=== PATIENT | male | born 1995 | race Caucasian/White ===

== ENCOUNTER 2016-09-24 18:03 | Emergency (ER) | payer OTHER ==
[~2016-09-24] VITALS: Ht 167.6 cm; Wt 60.1 kg
[2016-09-24 18:11] VITALS: TEMP 37.2; Ht 167.6 cm; Wt 60.1 kg
[2016-09-24] MEDS ORDERED: SODIUM CHLORIDE 0.9% 1000ML 1,000 ML IV STA (18:23)
[2016-09-24 18:51] LABS: BASO % 0.2 %; BASO ABS # 0.02 K/uL (0-0.2); COMPLETE YES; EOS % 1.4 %; HEMATOCRIT 47.3 % (42-52); IG% 0.2 %; LYMPH % 19.3 %; LYMPH ABS # 1.55 K/uL (1.2-3.4); MEAN CELL VOLUME 84.6 fL (80-100); MEAN CORPUSCULAR HEMOGLOBIN 30.9 pg (25-34); MEAN CORPUSCULAR HGB CONC 36.6 g/dl (32-36); MEAN PLATELET VOLUME 10.2 fL (7.4-10.4); MONO % 7.3 %; NEUT % 71.6 %; PLATELET COUNT 242 K/uL (130-400); RED BLOOD COUNT 5.59 M/uL (4.7-6.1); WHITE BLOOD COUNT 8.04 K/uL (4.8-10.8)
[2016-09-24 18:57] LABS: URINE APPEARANCE CLEAR (CLEAR); URINE BILIRUBIN NEG (NEG); URINE COLOR YELLOW; URINE NITRITE NEG (NEG); URINE SPECIFIC GRAVITY 1.014 (1.000-1.030); UROBILINOGEN NEG (NEG); ZZUR CULT IF INDIC CLEAN CATCH NO
[2016-09-24 19:00] LABS: MANUAL MICROSCOPIC REQUIRED? NO; REVIEW REQ? NO
[2016-09-24 19:21] LABS: ALT/SGPT 34 U/L (12-78); AST/SGOT 14 U/L (15-37); BLOOD UREA NITROGEN 12 mg/dl (7-18); CALCIUM 9.2 mg/dl (8.5-10.1); CARBON DIOXIDE 32 mmol/L (21-32); CHLORIDE 104 mmol/L (98-107); GLUCOSE 87 mg/dl (70-99); POTASSIUM 3.8 mmol/L (3.5-5.1); SODIUM 141 mmol/L (136-145)
[2016-09-24 19:23] LABS: ALKALINE PHOSPHATASE 86 U/L (45-117); C-REACTIVE PROTEIN < 0.29 mg/dl (0-0.29)
--- NOTE | 2016-09-24 19:41 | DIAGNOSTIC IMAGING REPORT ---
L-SPINE MIN 4 VIEWS ROUTINE CLINICAL HISTORY: Low back pain. COMPARISON STUDY: No previous studies for comparison. FINDINGS: There are 5 lumbar type vertebral bodies present. No fractures or subluxations are visualized. No destructive lesions are evident. There is no pathologic bowel dilatation. IMPRESSION: Unremarkable conventional radiographic evaluation of the lumbar spine Electronically signed by: Shakir Kellogg M.D. 09/24/2016 7:39 PM Dictated Date/Time: 09/24/2016 7:38 PM
--- NOTE | 2016-09-24 20:10 | DIAGNOSTIC IMAGING REPORT ---
(TESTICULAR) SCROTUM-CONT CLINICAL HISTORY: Bilateral testicular pain right greater than left COMPARISON STUDY: No previous studies for comparison. FINDINGS: The right testis measures 34 x 49 x 26 mm. The left testis measures 29 x 41 x 25 mm. There is no evidence of testicular torsion area no intratesticular masses are visualized. There are no findings to indicate acute epididymitis. The left epididymis was difficult to visualize.. IMPRESSION: 1. No evidence of intratesticular mass 2. No evidence of testicular torsion Electronically signed by: Shakir Kellogg M.D. 09/24/2016 8:09 PM Dictated Date/Time: 09/24/2016 8:07 PM
[2016-09-24 20:56] VITALS: BP 131/86; PULSE 86; O2SAT 98
--- NOTE | 2016-09-25 02:20 | EMERGENCY ROOM VISIT NOTE ---
History Report prepared by Magdalena: Jean-Claude Hart Under the Supervision of: Dr. Clay Roberts M.D. First contact with patient: 18:16 Chief Complaint: BACK PAIN Stated Complaint: PAIN IN BOTH LOWER BACK AND TESTICLES History of Present Illness The patient is a 20 year old male who presents to the Emergency Room with complaints of back pain, lower right. The patient also notes the following associated symptoms, bilateral testicular pain, which is now just right sided. This started 5 days ago in the testicles, yesterday for the back and is getting worse in the back. The patient has not found any relieving factors. The testicular pain is better, but the lower right back is worse at a 5/10. Pain is worse with walking or pressure on the right leg. Patient denies trauma. Pt denies LOC, headache, fevers, chills, diaphoresis, visual changes, neck pain, chest pain, breathing difficulties, nausea, vomiting, sorethroat, facial swelling, abdominal pain, melena, hematochezia, urinary symptoms, numbness, weakness, lymphadenopathy, rash, or other complaints. Review of Systems See HPI for pertinent positives and negatives. A total of ten systems were reviewed and were otherwise negative. Past Medical & Surgical Medical Problems: (1) Testicular torsion Social History Smoking Status: Never Smoker Marital Status: single Housing Status: lives with roommate Occupation Status: [employer] student Current/Historical Medications Unable to Obtain Active Prescriptions or Reported Meds Physical Exam Vital Signs Date Time Temp Pulse Resp B/P Pulse Ox O2 Delivery O2 Flow Rate FiO2 09/24/16 20:56 86 18 131/86 98 Room Air 09/24/16 19:06 80 18 148/78 98 Room Air 09/24/16 18:55 100 09/24/16 18:11 37.2 16 16 147/84 98 Room Air Physical Exam GENERAL: Awake, alert, well-appearing, in no distress HENT: Normocephalic, atraumatic. Oropharynx unremarkable. EYES: Normal conjunctiva. Sclera non-icteric. NECK: Supple. No nuchal rigidity. FROM. No JVD. RESPIRATORY: Clear to auscultation. CARDIAC: Regular rate, normal rhythm. Extremities warm and well perfused. Pulses equal. ABDOMEN: Soft, non-distended. No tenderness to palpation. No rebound or guarding. No masses. : Normal male genitalia. No swelling or tenderness to palpation. No erythema. MUSCULOSKELETAL: Chest examination reveals no tenderness. The back is symmetrical on inspection without obvious abnormality. There is no CVA tenderness to palpation. No joint edema. LOWER EXTREMITIES: Calves are equal size bilaterally and non-tender. No edema. No discoloration. NEURO: Positive right straight leg raise. No Saddle anesthesia. Reflexes symmetric. Normal sensorium. No sensory or motor deficits noted. SKIN: No rash or jaundice noted. Medical Decision & Procedures ER Provider Diagnostic Interpretation: X ray results as stated below per my interpretation and radiologist interpretation. Other radiology results as stated below per my review and radiologist interpretation (TESTICULAR) SCROTUM-CONT CLINICAL HISTORY: Bilateral testicular pain right greater than left COMPARISON STUDY: No previous studies for comparison. FINDINGS: The right testis measures 34 x 49 x 26 mm. The left testis measures 29 x 41 x 25 mm. There is no evidence of testicular torsion area no intratesticular masses are visualized. There are no findings to indicate acute epididymitis. The left epididymis was difficult to visualize.. IMPRESSION: 1. No evidence of intratesticular mass 2. No evidence of testicular torsion Electronically signed by: Shakir Kellogg M.D. 09/24/2016 8:09 PM Dictated Date/Time: 09/24/2016 8:07 PM L-SPINE MIN 4 VIEWS ROUTINE CLINICAL HISTORY: Low back pain. COMPARISON STUDY: No previous studies for comparison. FINDINGS: There are 5 lumbar type vertebral bodies present. No fractures or subluxations are visualized. No destructive lesions are evident. There is no pathologic bowel dilatation. IMPRESSION: Unremarkable conventional radiographic evaluation of the lumbar spine Electronically signed by: Shakir Kellogg M.D. 09/24/2016 7:39 PM Dictated Date/Time: 09/24/2016 7:38 PM Laboratory Results 09/24/16 18:35 Red Blood Count 5.59, Mean Corpuscular Volume 84.6, Mean Corpuscular Hemoglobin 30.9, Mean Corpuscular Hemoglobin Concent 36.6, Mean Platelet Volume 10.2, Neutrophils (%) (Auto) 71.6, Lymphocytes (%) (Auto) 19.3, Monocytes (%) (Auto) 7.3, Eosinophils (%) (Auto) 1.4, Basophils (%) (Auto) 0.2, Neutrophils # (Auto) 5.75, Lymphocytes # (Auto) 1.55, Monocytes # (Auto) 0.59, Eosinophils # (Auto) 0.11, Basophils # (Auto) 0.02 09/24/16 18:35 Test 09/24/16 18:20 09/24/16 18:35 Urine Color YELLOW Urine Appearance CLEAR (CLEAR) Urine pH 8.0 (4.5-7.5) Urine Specific Bagley 1.014 (1.000-1.030) Urine Protein NEG (NEG) Urine Glucose (UA) NEG (NEG) Urine Ketones NEG (NEG) Urine Occult Blood NEG (NEG) Urine Nitrite NEG (NEG) Urine Bilirubin NEG (NEG) Urine Urobilinogen NEG (NEG) Urine Leukocyte Esterase NEG (NEG) White Blood Count 8.04 K/uL (4.8-10.8) Red Blood Count 5.59 M/uL (4.7-6.1) Hemoglobin 17.3 g/dL (14.0-18.0) Hematocrit 47.3 % (42-52) Mean Corpuscular Volume 84.6 fL (80-100) Mean Corpuscular Hemoglobin 30.9 pg (25-34) Mean Corpuscular Hemoglobin Concent 36.6 g/dl (32-36) Platelet Count 242 K/uL (130-400) Mean Platelet Volume 10.2 fL (7.4-10.4) Neutrophils (%) (Auto) 71.6 % Lymphocytes (%) (Auto) 19.3 % Monocytes (%) (Auto) 7.3 % Eosinophils (%) (Auto) 1.4 % Basophils (%) (Auto) 0.2 % Neutrophils # (Auto) 5.75 K/uL (1.4-6.5) Lymphocytes # (Auto) 1.55 K/uL (1.2-3.4) Monocytes # (Auto) 0.59 K/uL (0.11-0.59) Eosinophils # (Auto) 0.11 K/uL (0-0.5) Basophils # (Auto) 0.02 K/uL (0-0.2) RDW Standard Deviation 36.5 fL (36.4-46.3) RDW Coefficient of Variation 11.9 % (11.5-14.5) Immature Granulocyte % (Auto) 0.2 % Immature Granulocyte # (Auto) 0.02 K/uL (0.00-0.02) Erythrocyte Sedimentation Rate 2 mm/hr (0-14) Anion Gap 5.0 mmol/L (3-11) Est Creatinine Clear Calc Drug Dose 90.3 ml/min Estimated GFR () 110.6 Estimated GFR (Non- 95.5 BUN/Creatinine Ratio 11.0 (10-20) Calcium Level 9.2 mg/dl (8.5-10.1) Total Bilirubin 0.5 mg/dl (0.2-1) Direct Bilirubin 0.1 mg/dl (0-0.2) Aspartate Amino Transf (AST/SGOT) 14 U/L (15-37) Alanine Aminotransferase (ALT/SGPT) 34 U/L (12-78) Alkaline Phosphatase 86 U/L (45-117) C-Reactive Protein < 0.29 mg/dl (0-0.29) Total Protein 8.1 gm/dl (6.4-8.2) Albumin 4.6 gm/dl (3.4-5.0) Lipase 175 U/L (73-393) Laboratory results reviewed by me Medications Administered Medications (Trade) Dose Ordered Sig/Darci Route Start Time Stop Time Status Last Admin Dose Admin Sodium Chloride (Nss 1000ml) 1,000 ml @ 999 mls/hr Q1H1M STAT IV 09/24/16 18:23 09/24/16 19:23 DC 09/24/16 18:23 999 MLS/HR ED Course 1816: The patient was evaluated in room A8. A complete history and physical exam was performed. 1823: Sodium Chloride 1000 ml @ 999 mls/hr IV 5: I reevaluated the patient. Discussed results and discharge instructions: He verbalized understanding and agreement. The patient is ready for discharge. Medical Decision Triage Nursing notes reviewed. The patient's presentation and history were concerning for back and testicular pain. Etiologies such as renal colic, epididymitis, torsion, appendicitis, diverticulitis, infections, inflammatory bowel disease, biliary pathology, UTI, musculoskeletal, disc herniation, cauda equina, epidural abscess, discitis, as well as others were entertained. Patient was evaluated, he declined analgesia. Clinically he looked well. Patient had an unremarkable CBC, urinalysis, CRP, LFTs, lipase, ultrasound and x -ray imaging. There is no evidence of epididymitis on examination or by ultrasound. He had no evidence of torsion both clinically as well as by imaging. He has no laboratory abnormalities. There was no trauma. The patient has pain only with movement or pressure. This is not consistent with a kidney stone. He had a benign abdomen. I discussed conservative management at this point with close outpatient follow-up. The patient felt comfortable and was in agreement. The patient declined analgesia prior to discharge. By the evaluation outlined above other emergent etiologies such as those listed in the differential, as well as others, were deemed relatively unlikely. The patient was informed about the findings as listed above. All questions were answered and he was pleased with the treatment. Return instructions were outlined and the patient was discharged in stable condition. The patient was referred to [facility] for follow-up for a recheck of the current condition. The chart was completed utilizing [employer] Speech voice recognition software. Grammatical errors, random word insertions, pronoun errors, and incomplete sentences are an occasional consequence of this system due to software limitations, ambient noise, and hardware issues. Any formal questions or concerns about the content, text, or information contained within the body of this dictation should be directly addressed to the physician for clarification. Impression Primary Impression: Right low back pain Additional Impression: Testicular pain Scribe Attestation The scribe's documentation has been prepared under my direction and personally reviewed by me in its entirety. I confirm that the note above accurately reflects all work, treatment, procedures, and medical decision making performed by me. Departure Information Dispostion Home / Self-Care Prescriptions Unable to Obtain Active Prescriptions or Reported Meds Referrals [facility] (PCP) Forms HOME CARE DOCUMENTATION FORM, IMPORTANT VISIT INFORMATION Patient Instructions My [facility] Additional Instructions BACK PAIN AND TESTICULAR PAIN INSTRUCTIONS: Ibuprofen(Motrin, Advil) may be used for fever or pain. Use 600mg every six hours as needed. Take with food. Avoid using more than 2400mg in a 24 hour period. Do not use 2400mg per day for more than three consecutive days without physician direction. Prolonged inappropriate use can lead to stomach upset or ulcers. This medication can be taken if you need to drive, work, or perform activities which may be dangerous when taking narcotic pain medication. (AND/OR) Acetaminophen(Tylenol) may be used for fever or pain. Use 1000mg every six hours as needed. Avoid using more than 4000mg in a 24 hour period. This medication can be taken if you need to drive, work, or perform activities which may be dangerous when taking narcotic pain medication. Rest and avoid heavy lifting until your symptoms resolve and then gradually return to full activity. A good rule of thumb is if it hurts your back to perform a certain activity, then it should be avoided until you are healthy again. A heating pad, warm compresses, or a hot shower may help with tight muscles and can be done several times a day as needed. Return to the ER immediately for any numbness, tingling, severe pain, testicular pain or swelling, loss of control of your bowels or bladder, inability to walk, or as needed. Wear supportive underwear. No running or lifting until symptoms resolve. Follow up with S within 2-3 days for a recheck of your current condition. Problem Qualifiers
== END 2016-09-24 20:58 | disposition home or self-care (01) ==
LOC: C.EDB 18:08 → C.EDA 20:58
DX: M54.5 Low back pain (principal); N50.819 Testicular pain, unspecified